=== PATIENT | male | born 1985 | race Caucasian/White ===

== ENCOUNTER → 2017-01-12 | Outpatient (CLI) | payer BC, OTHER | LOC: MW.CHFP 14:48 | PROVIDERS: ATTEND Physician Assistant | DX: Z11.3 Encounter for screening for infections with a predominantly sexual mode of transmission (principal); R31.9 Hematuria, unspecified; R39.9 Unspecified symptoms and signs involving the genitourinary system | CPT/HCPCS: 81001; 87491; 87591 ==

== ENCOUNTER 2019-02-01 12:22 | Emergency (ER) | payer BC ==
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
[2019-02-01] MEDS ORDERED: Lidocaine 1% 10 ML MDV INJECT ONE (13:21)
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
== END 2019-02-01 14:30 | disposition home or self-care (01) ==
LOC: MW.ED 12:22
DX: L02.512 Cutaneous abscess of left hand (principal); M79.5 Residual foreign body in soft tissue
CPT/HCPCS: 26010; 73130; 99283; J2001

== ENCOUNTER 2020-07-31 05:20 | Emergency (ER) | payer BC, OTHER ==
[2020-07-31] MEDS ORDERED: Lactated Ringers 1,000 ML IV ONE ×2 (05:45→05:50)
[2020-07-31] MEDS ORDERED: Sodium Chloride 0.9% 10 ML Syringe FLUSH PRN (05:45)
[2020-07-31] MEDS ORDERED: Sodium Chloride 0.9% 2.5 ML Syringe FLUSH PRN (05:45)
[2020-07-31] MEDS ORDERED: LORazepam 2 MG/ML SDV IVPUSH ONE ×4 (05:49→08:22)
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
[2020-07-31 06:28] LABS: ACETAMINOPHEN <2.0 ug/mL
[2020-07-31 06:37] LABS: BLOOD UREA NITROGEN,BUN 12 mg/dL (7.0-18.0); CARBON DIOXIDE,CO2 22.7 mmol/L (21.0-32.0); CHLORIDE,CL 105 mmol/L (98-107); GLUCOSE RANDOM 129 mg/dL (74-106); POTASSIUM,K 3.8 mmol/L (3.5-5.1); SODIUM,NA 140 mmol/L (136-148)
[2020-07-31] MEDS ORDERED: LORazepam 2 MG/ML SDV ONE ×2 (08:21→08:25)
== END 2020-07-31 08:30 ==
LOC: MW.ED 05:20
DX: T43.292A Poisoning by other antidepressants, intentional self-harm, initial encounter (principal); F10.129 Alcohol abuse with intoxication, unspecified; F32.9 Major depressive disorder, single episode, unspecified; R00.0 Tachycardia, unspecified; F17.210 Nicotine dependence, cigarettes, uncomplicated; Z90.49 Acquired absence of other specified parts of digestive tract; Z79.899 Other long term (current) drug therapy; Y90.7 Blood alcohol level of 200-239 mg/100 ml
CPT/HCPCS: 36415; 80053; 80305; 80307; 82550; 83605; 84443; 84484; 85025; 93005; 96361; 96374; 96376; 99285; J2060; J7120; 99283

== ENCOUNTER 2021-04-27 20:41 | Emergency (ER) | payer BC, OTHER ==
--- NOTE | 2021-04-27 20:44 | EDM.PDOC ---
ED HPI GENERAL MEDICAL PROBLEM - General Chief Complaint: Skin Complaint Stated Complaint: POSSIBLE INFECTION ON FINGER Time Seen by Provider: 04/27/21 20:43 Source of Information: Reports: Patient History Limitations: Reports: No Limitations - History of Present Illness INITIAL COMMENTS - FREE TEXT/NARRATIVE: 36-year-old male presents for pain and swelling to left third digit and knuckle. Patient states that he sprained his hand falling on it a couple of days ago and that over the day the redness and swelling is gotten worse. Denies any fevers. left middle finger Pain Score (Numeric/FACES): 6 - Related Data Allergies Allergy/AdvReac Type Severity Reaction Status Date / Time No Known Allergies Allergy Verified 04/27/21 20:53 Home Meds: Home Meds buPROPion [Wellbutrin] 1 tab PO DAILY 07/31/20 [History] Clindamycin HCl 450 mg PO TID 10 Days #90 capsule 04/27/21 [Rx] Escitalopram Oxalate [Lexapro] 20 mg PO DAILY 04/27/21 [History] Past Medical History - Past Health History Medical/Surgical History: Denies Medical/Surgical History Psychiatric History: Reports: Depression - Infectious Disease History Infectious Disease History: Reports: None - Past Surgical History GI Surgical History: Reports: Appendectomy Musculoskeletal Surgical History: Reports: Amputation Other Musculoskeletal Surgeries/Procedures:: left great toe Social & Family History - Family History Family Medical History: No Pertinent Family History - Caffeine Use Caffeine Use: Reports: Coffee, Energy Drinks, Soda, Tea ED ROS GENERAL - Review of Systems Review Of Systems: Comprehensive ROS is negative, except as noted in HPI. ED EXAM, SKIN/RASH Exam: See Below Exam Limited By: No Limitations General Appearance: Alert, WD/WN, No Apparent Distress Ears: Hearing Grossly Normal Throat/Mouth: Normal Voice, No Airway Compromise Head: Atraumatic, Normocephalic Neck: Normal Inspection Respiratory/Chest: No Respiratory Distress Cardiovascular: Normal Peripheral Pulses Extremities: Other (erythema and swelling of PIP 3rd left digit tracking into dorsum of hand consistent with cellulitis) Neurological: Alert Psychiatric: Normal Affect, Normal Mood Skin: Warm, Dry, Intact, Normal Color Course - Vital Signs Last Recorded V/S: Last Vital Signs Temp 97.5 F 04/27/21 20:50 Pulse 72 04/27/21 20:50 Resp 18 04/27/21 20:50 BP 129/77 04/27/21 20:50 Pulse Ox 97 04/27/21 20:50 - Orders/Labs/Meds Orders: Active Orders 24 hr Category Date Time Status Hand Comp Min 3V Lt [CR] Stat Exams 04/27/21 20:54 Taken Meds: Medications Discontinued Medications Generic Name Dose Route Start Last Admin Trade Name Mignon PRN Reason Stop Dose Admin Clindamycin HCl 450 mg 04/27/21 20:55 04/27/21 20:59 Clindamycin Hcl 150 Mg Cap PO 04/27/21 20:56 450 mg STAT STA Administration - Re-Assessments/Exams Free Text/Narrative Re-Assessment/Exam: 04/27/21 20:56 I do not feel any fluctuance or drainable abscess; will get hand XR. Will start PO clindamycin. Told patient that if symptoms are not improved by 2 days of PO antibiotics to come back for reassessment and possible I&D. 04/27/21 21:34 X-ray imaging does not show any gas in the soft tissue or bony abnormalities. Will discharge patient with clindamycin, return precautions discussed as noted above. Departure - Departure Time of Disposition: 21:35 Disposition: Home, Self-Care 01 Condition: Good Clinical Impression: Cellulitis of hand - Discharge Information Prescriptions: Clindamycin HCl 450 mg PO TID 10 Days #90 capsule Instructions: Cellulitis, Adult Referrals: Reginaldo Renteria MD [Primary Care Provider] - Forms: ED Department Discharge Additional Instructions: Your x-ray imaging was unremarkable. Your symptoms are suggestive of cellulitis. If your symptoms do not improve within 2 days of antibiotics and should come back to the emergency department for reassessment as there could be an underlying abscess that needs to be drained. The following information is given to patients seen in the emergency department who are being discharged to home. This information is to outline your options for follow-up care. We provide all patients seen in our emergency department with a follow-up referral. The need for follow-up, as well as the timing and circumstances, are variable depending upon the specifics of your emergency department visit. If you don't have a primary care physician on staff, we will provide you with a referral. We always advise you to contact your personal physician following an emergency department visit to inform them of the circumstance of the visit and for follow-up with them and/or the need for any referrals to a consulting specialist. The emergency department will also refer you to a specialist when appropriate. This referral assures that you have the opportunity for follow-up care with a specialist. All of these measure are taken in an effort to provide you with optimal care, which includes your follow-up. Under all circumstances we always encourage you to contact your private physician who remains a resource for coordinating your care. When calling for follow-up care, please make the office aware that this follow-up is from your recent emergency room visit. If for any reason you are refused follow-up, please contact the [facility] Emergency Department at and asked to speak to the emergency department charge nurse. Please follow up with your primary care physician. If you do not have a primary care physician, see below: [facility] [address] [place] [address] [id number] [facility] [address] [place] [address] [id number] [facility] [address] [place] [id number] Sepsis Event Note (ED) - Focused Exam Vital Signs: Vital Signs Temp Pulse Resp BP Pulse Ox 04/27/21 20:50 97.5 F 72 18 129/77 97 - My Orders Last 24 Hours: My Active Orders 04/27/21 20:54 Hand Comp Min 3V Lt [CR] Stat - Assessment/Plan Last 24 Hours: My Active Orders 04/27/21 20:54 Hand Comp Min 3V Lt [CR] Stat
[2021-04-27] MEDS ORDERED: Clindamycin HCl 150 MG Cap PO STA (20:55)
--- NOTE | 2021-04-27 21:45 | CR ---
INDICATION: Trauma. Pain and swelling of the left 3rd finger and left hand. TECHNIQUE: Three views of the left hand. FINDINGS: Negative. No fracture, dislocation, or erosion. Soft tissue swelling proximal left 3rd finger. IMPRESSION: Soft tissue swelling left 3rd finger. The examination is otherwise negative. Dictated by Shahbaz Parker MD @ 04/27/2021 9:45:[address] Shahbaz Parker @ Apr 27 2021 9:45PM
== END 2021-04-27 21:45 | disposition home or self-care (01) ==
LOC: MW.ED 20:41
DX: L03.012 Cellulitis of left finger (principal)
CPT/HCPCS: 73130; 99283; A9270; 99282

== ENCOUNTER 2021-04-29 22:22 | Emergency (ER) | payer BC ==
--- NOTE | 2021-04-29 22:35 | EDM.PDOC ---
ED HPI GENERAL MEDICAL PROBLEM - General Chief Complaint: Skin Complaint Stated Complaint: POSSIBLE FINGER INFECTION Time Seen by Provider: 04/29/21 22:28 Source of Information: Reports: Patient History Limitations: Reports: No Limitations - History of Present Illness INITIAL COMMENTS - FREE TEXT/NARRATIVE: 36-year-old male presents for concern for abscess to left third digit. Patient was seen here a couple days ago by myself and noted to have cellulitis versus possible underlying abscess of the left third finger with redness streaking into the dorsum of his hand. He has been compliant with his antibiotics and the redness is no longer in the dorsum of his hand. He notes the swelling of the finger is getting worse and it looks like there is a white area with pus under neath. He denies any fevers or systemic symptoms. left middle finger Pain Score (Numeric/FACES): 5 - Related Data Allergies Allergy/AdvReac Type Severity Reaction Status Date / Time No Known Allergies Allergy Verified 04/29/21 22:35 Home Meds: Home Meds buPROPion [Wellbutrin] 1 tab PO DAILY 07/31/20 [History] Clindamycin HCl 450 mg PO TID 10 Days #90 capsule 04/27/21 [Rx] Escitalopram Oxalate [Lexapro] 20 mg PO DAILY 04/27/21 [History] Past Medical History - Past Health History Medical/Surgical History: Denies Medical/Surgical History HEENT History: Reports: None Cardiovascular History: Reports: None Respiratory History: Reports: None Gastrointestinal History: Reports: None Genitourinary History: Reports: None Musculoskeletal History: Reports: None Neurological History: Reports: None Psychiatric History: Reports: Depression Endocrine/Metabolic History: Reports: None Insulin Pump Model and Waist Presser: None Hematologic History: Reports: None Immunologic History: Reports: None Oncologic (Cancer) History: Reports: None Dermatologic History: Reports: None - Infectious Disease History Infectious Disease History: Reports: None - Past Surgical History Head Surgeries/Procedures: Reports: None GI Surgical History: Reports: Appendectomy Musculoskeletal Surgical History: Reports: Amputation Social & Family History - Family History Family Medical History: No Pertinent Family History - Caffeine Use Caffeine Use: Reports: Coffee, Energy Drinks ED ROS GENERAL - Review of Systems Review Of Systems: Comprehensive ROS is negative, except as noted in HPI. ED EXAM, SKIN/RASH Exam: See Below Exam Limited By: No Limitations General Appearance: Alert, WD/WN, No Apparent Distress Ears: Hearing Grossly Normal Throat/Mouth: Normal Voice, No Airway Compromise Head: Atraumatic, Normocephalic Respiratory/Chest: No Respiratory Distress, No Accessory Muscle Use Cardiovascular: Normal Peripheral Pulses Extremities: Other (erythema, swelling, fluctuance of left third digit consistent with abscess) Neurological: Alert, Normal Cognition, Normal Gait Psychiatric: Normal Affect, Normal Mood Skin: Warm, Dry, Intact, Normal Color ED SKIN PROCEDURES - I&D Site: finger 3rd left Skin Prep: Chlorhexidine (Hibiciens) Local Anesthesia: Lidocaine: 1% Plain Local Anesthetic Volume: 5cc Area Incised With: 11 Blade Drainage: Purulent, Bloody, Small Amount Probed to Break Up Loculations: Yes Packed With: None Sterile Dressing: Adhesive Dressing Complications: No Course - Vital Signs Last Recorded V/S: Last Vital Signs Temp 97.4 F 04/29/21 22:31 Pulse 70 04/29/21 22:31 Resp 16 04/29/21 22:31 BP 122/86 04/29/21 22:31 Pulse Ox 99 04/29/21 22:31 - Orders/Labs/Meds Meds: Medications Discontinued Medications Generic Name Dose Route Start Last Admin Trade Name Freq PRN Reason Stop Dose Admin Lidocaine HCl 5 ml 04/29/21 22:33 04/29/21 22:44 Lidocaine 1% 5 Ml Sdv INJECT 04/29/21 22:34 5 ml ONETIME ONE Administration - Re-Assessments/Exams Free Text/Narrative Re-Assessment/Exam: 04/29/21 22:35 Will I&D the finger abscess; recommend continue clindamycin, and will give f/u with general surgery. 04/29/21 23:11 I&D performed, see procedure note. Continue antibiotics, f/u with surgery. Departure - Departure Time of Disposition: 23:12 Disposition: Home, Self-Care 01 Condition: Good Clinical Impression: Abscess of finger Qualifiers: Laterality: left Qualified Code(s): L02.512 - Cutaneous abscess of left hand - Discharge Information Instructions: Skin Abscess Referrals: Reginaldo Renteria MD [Primary Care Provider] - Forms: ED Department Discharge Additional Instructions: Continue the antibiotics. Follow-up with surgery. Information provided below. [facility] General Surgery Professional Building [address] [place] [address], [address] [place] [address] The following information is given to patients seen in the emergency department who are being discharged to home. This information is to outline your options for follow-up care. We provide all patients seen in our emergency department with a follow-up referral. The need for follow-up, as well as the timing and circumstances, are variable depending upon the specifics of your emergency department visit. If you don't have a primary care physician on staff, we will provide you with a referral. We always advise you to contact your personal physician following an emergency department visit to inform them of the circumstance of the visit and for follow-up with them and/or the need for any referrals to a consulting specialist. The emergency department will also refer you to a specialist when appropriate. This referral assures that you have the opportunity for follow-up care with a specialist. All of these measure are taken in an effort to provide you with optimal care, which includes your follow-up. Under all circumstances we always encourage you to contact your private physician who remains a resource for coordinating your care. When calling for follow-up care, please make the office aware that this follow-up is from your recent emergency room visit. If for any reason you are refused follow-up, please contact the [facility] Emergency Department at and asked to speak to the emergency department charge nurse. Please follow up with your primary care physician. If you do not have a primary care physician, see below: [facility] [address] [place] [id number] [facility] [address] [place] [address] [facility] [address] [place] [address] Sepsis Event Note (ED) - Focused Exam Vital Signs: Vital Signs Temp Pulse Resp BP Pulse Ox 04/29/21 22:31 97.4 F 70 16 122/86 99
[2021-04-29] MEDS ORDERED: Clindamycin Phosphate 900 MG/6 ML SDV IM ONE (23:19)
[2021-04-29] MEDS ORDERED: Sodium Chloride 0.9% 10 ML Syringe FLUSH PRN (23:24)
[2021-04-29] MEDS ORDERED: Sodium Chloride 0.9% 2.5 ML Syringe FLUSH PRN (23:24)
[2021-04-29] MEDS ORDERED: Clindamycin Phosphate in D5W 50 ML IV ONE (23:25)
== END 2021-04-30 00:05 | disposition home or self-care (01) ==
LOC: MW.ED 22:22
DX: L02.512 Cutaneous abscess of left hand (principal); Z79.899 Other long term (current) drug therapy
CPT/HCPCS: 26010; 96365; 99282; J3490

== ENCOUNTER 2023-01-16 15:08 | Emergency (ER) | payer BC ==
[2023-01-16] MEDS ORDERED: Ketorolac 60 MG/2 ML SDV IM ONE (16:44)
== END 2023-01-16 17:51 | disposition home or self-care (01) ==
LOC: MW.ED 15:08
DX: M51.16 Intervertebral disc disorders with radiculopathy, lumbar region (principal)
CPT/HCPCS: 72100; 72100-26; 96372; 99283; J1885

== ENCOUNTER 2023-05-21 06:06 | Emergency (ER) | payer SELFPAY ==
[~2023-05-21 06:06] MED LIST: 50% Dextrose in Water 50 ML Syringe ONE; EPINEPHrine 1:10,000 1 MG/10 ML Syringe ONE; Sodium Bicarbonate 8.4% 50 MEQ/50 ML Syringe ONE
== END 2023-05-21 07:30 | disposition expired ==
LOC: MW.ED 06:06
DX: I46.9 Cardiac arrest, cause unspecified (principal)
CPT/HCPCS: 31500; 36680; 92950; 99285; J0171; J3490